=== PATIENT | female | born 1970 | race African-American/Black ===

== ENCOUNTER 2016-05-15 09:13 | Emergency (ER) | payer OTHER ==
[2016-05-15 09:26] VITALS: BP 161/93; PULSE 83; TEMP 98.5; BMI 34.3
[2016-05-15] MEDS ORDERED: ACETAMINOPHEN 500 MG TABLET (FP) PO ONE (09:51)
--- NOTE | 2016-05-15 09:52 | PDOC ---
History of Present Illness - General Chief Complaint: Injury Stated Complaint: FALL, RT ANKLE PAIN Time Seen by Provider: 05/15/16 09:51 History Source: Patient Exam Limitations: No Limitations - History of Present Illness Initial Comments: 05/15/16 10:56 05/15/16 10:56 Chief complaint: Patient fell on stairs and caught her foot Jeanne muse complaining of right ankle and foot pain History of present illness: Patient is a 45 year old female with a history of GERD and hysterectomy here today complaining of right lateral ankle pain and foot pain over fifth meta-tarsal joint. Patient has minimal swelling right lateral ankle. Patient unable to ambulate due to pain. Patient denies any numbness of right lower extremity or foot or ankle. Patient reports that pain currently as a 10 out of 10. 05/16/16 08:26 05/16/16 08:26 Occurred: reports: just prior to arrival Severity: reports: moderate Pain Location: reports: lower extremity (rt. foot/lateral ankle) Method of Injury: Yes: fall Modifying Factors: improves with: immobilization Loss of Consciousness: no loss of consciousness Associated Symptoms (Fall): denies symptoms Past History - Past Medical History Allergies/Adverse Reactions: Allergies Allergy/AdvReac Type Severity Reaction Status Date / Time No Known Drug Allergies Allergy Verified 05/15/16 09:21 Home Medications: Ambulatory Orders NK [No Known Home Medication] 05/15/16 Anemia: No Asthma: No Cancer: No Cardiac Disorders: No CVA: No COPD: No CHF: No Dementia: No Diabetes: No GI Disorders: Yes (reflux) Disorders: No HTN: No Hypercholesterolemia: No Liver Disease: No Seizures: No Thyroid Disease: No - Surgical History Abdominal Surgery: No Appendectomy: No Cardiac Surgery: No Cholecystectomy: Yes Lung Surgery: No Neurologic Surgery: No Orthopedic Surgery: No - Psycho/Social/Smoking Cessation Hx Suicidal Ideation: No Smoking History: Current every day smoker Have you smoked in the past 12 months: Yes Number of Cigarettes Smoked Daily: 10 Information on smoking cessation initiated: Yes 'Breaking Loose' booklet given: 05/15/16 Hx Alcohol Use: No Drug/Substance Use Hx: No Substance Use Type: Alcohol Hx Substance Use Treatment: No Review of Systems - Review of Systems Able to Perform ROS?: Yes Constitutional: No: Symptoms Reported HEENTM: No: Symptoms Reported Respiratory: No: Symptoms reported Cardiac (ROS): No: Symptoms Reported ABD/GI: No: Symptoms Reported Musculoskeletal: Yes: Joint Pain (rt. lateral ankle/foot ), Joint Swelling (rt. lateral ankle ) Integumentary: No: Symptoms Reported Neurological: No: Symptoms reported *Physical Exam - Vital Signs Last Vital Signs Temp Pulse Resp BP Pulse Ox 98.5 F 83 18 161/93 100 05/15/16 09:23 05/15/16 09:23 05/15/16 09:23 05/15/16 09:23 05/15/16 09:23 - Physical Exam General Appearance: Yes: Appropriately Dressed Vascular Pulses: Dorsalis-Pedis (R): 4+ Musculoskeletal: positive: Normal Inspection. negative: CVA Tenderness, CVA Tenderness (R), CVA Tenderness (L), Vertebral Tenderness Extremity: positive: Normal Capillary Refill, Normal Range of Motion, Tender ( rt. lateral ankle pain, rt. 5th metatarsal jt. proximatl aspect) Integumentary: positive: Swelling (minimal swelling rt. lateral ankle ) Procedures - Consent Consent obtained: From Patient - Splinting Splint Location: Right: Foot, Ankle Pre-Made Type: aircast Faraz Bandage: 3" Complications: No ED Treatment Course - RADIOLOGY Radiology Studies Ordered: Category Date Time Status ANKLE & FOOT-RIGHT* [RAD] Stat Radiology 05/15/16 09:35 Taken Medical Decision Making - Medical Decision Making 05/15/16 10:58 Patient is a 45 year old female with a history of GERD and hysterectomy here today complaining of right lateral ankle pain and foot pain over fifth meta- tarsal joint. Patient has minimal swelling right lateral ankle. Patient unable to ambulate due to pain. Patient denies any numbness of right lower extremity or foot or ankle. Patient reports that pain currently as a 10 out of 10. 05/15/16 11:01 Right lateral ankle pain and right lateral foot pain rule out fracture due to failure L rt. 5th toe fracture base of proximal phalanxb noted 05/16/16, pt called to notify her and to tell her to tape rt4th and 5th toes together Plan: Patient denies any chance of being and had hysterectomy will sent to x- ray for x-ray ankle and right foot fracture noted on x-ray call from radiologist 05/16/16 fx base of proximal 5th phalanx Faraz wrap 3 inch, air cast right ankle and crutches given Acetaminophen 1000 mg by mouth given ortho follow up needed 05/16/16 08:27 05/16/16 08:28 pt. called to notify of fx 5th proximal metatarsal told to jeff tape 4th and 5th toes together 05/16/16 08:31 *DC/Admit/Observation/Transfer Diagnosis at time of Disposition: Right ankle sprain Qualifiers: Encounter type: initial encounter Involved ligament of ankle: unspecified ligament Qualified Code(s): S93.401A - Sprain of unspecified ligament of right ankle, initial encounter Right foot sprain Qualifiers: Encounter type: initial encounter Qualified Code(s): S93.601A - Unspecified sprain of right foot, initial encounter Toe fracture, right Qualifiers: Encounter type: initial encounter Toe: lesser toe Phalanx: proximal Fracture alignment: nondisplaced - Discharge Dispostion Disposition: HOME Condition at time of disposition: Stable - Referrals Referrals: Karen Schuster MD [Primary Care Provider] - Adam Ascencio MD [Staff Physician] - - Patient Instructions Additional Instructions: Regular right leg as much as possible and apply ice to tender area every 2 hours for 15 minutes while awake today and tomorrow Keep Faraz wrap in place during the day and Aircast and use crutches for ambulation Patient voiced understanding of discharge instructions and all questions were answered - Post Discharge Activity Work/School Note: Back to Work
== END 2016-05-15 11:11 | disposition home or self-care (01) ==
LOC: JERFT 09:13
PROC: 2W3LX1Z Immobilization of Right Lower Extremity using Splint (ICD-10-PCS; principal; 2016-05-15)
DX: S93.401A Sprain of unspecified ligament of right ankle, initial encounter (principal); S93.601A Unspecified sprain of right foot, initial encounter; W10.8XXA Fall (on) (from) other stairs and steps, initial encounter; Y93.89 Activity, other specified; Y92.038 Other place in apartment as the place of occurrence of the external cause
CPT/HCPCS: 73610-TC-RT; 73630-TC-RT; 99281-25

== ENCOUNTER 2017-07-17 12:33 | Inpatient (IN) | payer OTHER ==
[2017-07-17 12:40] VITALS: BMI 34.3
--- NOTE | 2017-07-17 13:11 | PDOC ---
History of Present Illness - General History Source: Patient Exam Limitations: No Limitations - History of Present Illness Initial Comments: 07/17/17 14:00 47 yhear old female with pmh of crons and IBS who presented to Ed due to headache, light headedness and elevated blood pressure. She has BP number has been elevated in 170/92 on no meds. She reports chest tightness med sternal , local , non radiating. associated with sob and nausea but no vomiting. She denies any she denies any sob on exertion , no orthopnea or dyspnea. the headache is 3/10 left side, radiated to her neck, and shoulders. She denies any fever, chills, vomiting , diarrhea or constipation, denies any dysuria, hematuria or frequency. PMH:Cron , IBS PSH : Hysteroectomy, cholecystectomy 07/17/17 15:39 EKG: NSR, SC , QRS 80, QTC 448, St elevation V4 , (my reading ). will repeat EKG <Jared Fontenot - Last Filed: 07/17/17 16:11> <Elias Valiente - Last Filed: 07/17/17 16:25> - General Chief Complaint: Blood Pressure Problem Stated Complaint: ELEVATED BP Time Seen by Provider: 07/17/17 13:10 Past History - Travel Traveled outside of the country in the last 30 days: No Close contact w/someone who was outside of country & ill: No - Past Medical History Anemia: No Asthma: No Cancer: No Cardiac Disorders: No Hx Myocardial Infarction: No CVA: No COPD: No CHF: No DVT: No Dementia: No Diabetes: No GI Disorders: Yes (reflux) Disorders: No HTN: No Hypercholesterolemia: No Liver Disease: No Seizures: No Thyroid Disease: No - Surgical History Abdominal Surgery: No Appendectomy: No Cardiac Surgery: No Cholecystectomy: Yes Lung Surgery: No Neurologic Surgery: No Orthopedic Surgery: No - Suicide/Smoking/Psychosocial Hx Smoking History: Current every day smoker Have you smoked in the past 12 months: Yes Number of Cigarettes Smoked Daily: 10 Information on smoking cessation initiated: No 'Breaking Loose' booklet given: 05/15/16 Hx Alcohol Use: No Drug/Substance Use Hx: No Substance Use Type: Alcohol Hx Substance Use Treatment: No <Jared Fontenot - Last Filed: 07/17/17 16:11> <Elias Valiente - Last Filed: 07/17/17 16:25> - Past Medical History Allergies/Adverse Reactions: Allergies Allergy/AdvReac Type Severity Reaction Status Date / Time No Known Drug Allergies Allergy Verified 07/17/17 12:37 Home Medications: Ambulatory Orders NK [No Known Home Medication] 05/15/16 Review of Systems - Review of Systems Able to Perform ROS?: Yes Is the patient limited Bulgarian proficient: No Constitutional: No: Symptoms Reported, See HPI, Chills, Diaphoresis, Fever, Loss of Appetite, Malaise, Night Sweats, Weakness, Weight Stable, Unintentional Wgt. Loss, Unexplained wgt Loss, Other HEENTM: No: Symptoms Reported, See HPI, Eye Pain, Blurred Vision, Tearing, Recent change in vision, Double Vision, Cataracts, Ear Pain, Ocular Prothesis, Ear Discharge, Nose Pain, Nose Congestion, Tinnitus, Nose Bleeding, Hearing Loss , Throat Pain, Throat Swelling, Mouth Pain, Dental Problems, Difficulty Swallowing, Mouth Swelling, Other Respiratory: Yes: Shortness of Breath. No: Cough, Orthopnea, SOB with Exertion , Stridor, Wheezing, Productive cough, Hemoptysis Cardiac (ROS): Yes: Chest Pain, Lightheadedness, Chest Tightness. No: Edema, Irregular Heart Rate, Palpitations, Syncope ABD/GI: Yes: Nausea. No: Poor Appetite, Poor Fluid Intake, Rectal Bleeding, Vomiting, Indigestion, Abdominal cramping : No: Symptoms Reported, See HPI, Burning, Dysuria, Discharge, Frequency, Flank Pain, Hematuria, Incontinence, Pain, Urgency, Testicular Mass, Testicular Swelling, Lesions, Testicular Pain, Other Musculoskeletal: No: Symptoms Reported, See HPI, Back Pain, Gout, Joint Pain, Joint Swelling, Muscle Pain, Muscle Weakness, Neck Pain, Joint Stiffness, Other Integumentary: No: Symptoms Reported, See HPI, Bruising, Change in Color, Change in Hair/Nails, Dryness, Erythema, Flushing, Lesions, Lumps, Pallor, Pruritus, Rash, Sweating, Other Neurological: Yes: Headache, Tremors. No: Ataxia, Dizziness Psychiatric: No: Anxiety, Depression, Emotional Problems, Mood Swings Endocrine: No: Excessive Sweating, Flushing, Intolerance to Cold, Intolerance to Heat, Increased Hunger, Increased Urine Hematologic/Lymphatic: No: Anemia, Blood Clots, Easy Bleeding <Jared Fontenot - Last Filed: 07/17/17 16:11> *Physical Exam - Vital Signs Last Vital Signs Temp Pulse Resp BP Pulse Ox 98.1 F 75 15 175/102 100 07/17/17 12:38 07/17/17 12:38 07/17/17 12:38 07/17/17 12:38 07/17/17 12:38 07/17/17 15:28 General appearance: sleepy and fatigue in NAD Head: nc/at, dry mucus membrane. Neck: supple Chest: diminished breath sound , CTA B/L . no wheezes, no accessory muscle use. Heart : RRR, NO MRG Abdomen: obese, soft , non tender to palpation Musculoskeleteal: left shoulder tederness with LROM due to pain Neuro: no focal deficit, Legs: + 2 edema - Physical Exam General Appearance: Yes: Nourished, Obese. No: Intoxicated HEENT: positive: EOMI, WILMER, Normal Voice, TMs Normal. negative: Tonsillar Exudate, Tonsillar Erythema, Lesions, Excessive drooling Neck: negative: Carotid bruit, Decreased range of motion, Stridor, Lymphadenopathy (L) Respiratory/Chest: positive: Lungs Clear, Normal Breath Sounds. negative: Respiratory Distress, Accessory Muscle Use, Labored Respiration Cardiovascular: positive: Regular Rhythm, Regular Rate, S1, S2. negative: Edema , JVD, Murmur Vascular Pulses: Femoral (R): 2+, Femoral (L): 2+, Dorsalis-Pedis (R): 2+, Doralis-Pedis (L): 2+ Gastrointestinal/Abdominal: positive: Normal Bowel Sounds, Soft. negative: Tender, Distended, Guarding, Rebound, Tenderness Musculoskeletal: positive: Normal Inspection. negative: CVA Tenderness Extremity: positive: Normal Capillary Refill, Normal Inspection, Normal Range of Motion. 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 07/17/17 16:01 first trop is negative <0.02 will repeat after 6 hours at 20.00 07/17/17 16:12 Pt blood pressure is trending down from 166/92 to 151/ 80 . after one SL ntiro and Tylenol. - RADIOLOGY Chest X-Ray Result: No Infiltrates, Other (no acute pathology) - Medications Given in the ED: 07/17/17 15:28 nitpglycerin 0.4 SL Tylenol 650 mg once ofr pain 07/17/17 15:58 324 ASA chewable nitroglycerine 0.5 mg paste <Jared Fontenot - Last Filed: 07/17/17 16:11> - LABORATORY CBC & Chemistry Diagram: 07/17/17 14:35 07/17/17 14:35 - ADDITIONAL ORDERS Additional order review: Laboratory Results 07/17/17 07/17/17 07/17/17 14:35 14:35 14:35 PT with INR 11.70 INR 1.04 D-Dimer 176 Sodium 138 Potassium 4.2 Chloride 103 Carbon Dioxide 27 Anion Gap 8 BUN 9 Creatinine 0.7 Creat Clearance w eGFR > 60 Random Glucose 76 Calcium 8.8 Magnesium 2.2 Total Bilirubin 0.3 AST 13 L ALT 16 Alkaline Phosphatase 73 Creatine Kinase 180 Creatine Kinase Index 1.1 CK-MB (CK-2) 1.986 Troponin I < 0.02 < 0.02 B-Natriuretic Peptide 216.98 H Total Protein 7.6 Albumin 4.0 Triglycerides 169 H Cholesterol 261 H Total LDL Cholesterol 184 H HDL Cholesterol 43 Urine Color Urine Appearance Urine pH Ur Specific [place] Urine Protein Urine Glucose (UA) Urine Ketones Urine Blood Urine Nitrite Urine Bilirubin Urine Urobilinogen Ur Leukocyte Esterase 07/17/17 13:22 PT with INR INR D-Dimer Sodium Potassium Chloride Carbon Dioxide Anion Gap BUN Creatinine Creat Clearance w eGFR Random Glucose Calcium Magnesium Total Bilirubin AST ALT Alkaline Phosphatase Creatine Kinase Creatine Kinase Index CK-MB (CK-2) Troponin I B-Natriuretic Peptide Total Protein Albumin Triglycerides Cholesterol Total LDL Cholesterol HDL Cholesterol Urine Color L[place] Urine Appearance Clear Urine pH 6.0 Ur Specific [place] 1.011 Urine Protein Negative Urine Glucose (UA) Negative Urine Ketones Negative Urine Blood Negative Urine Nitrite Negative Urine Bilirubin Negative Urine Urobilinogen Negative Ur Leukocyte Esterase Negative 07/17/17 14:35 RBC 4.41 MCV 93.6 MCHC 33.7 RDW 13.6 MPV 11.3 H Neutrophils % 60.9 Lymphocytes % 28.6 Monocytes % 6.6 Eosinophils % 2.9 Basophils % 1.0 - RADIOLOGY Radiology Studies Ordered: Category Date Time Status HEAD CT WITHOUT CONTRAST [CT] Stat CT Scan 07/17/17 16:23 Ordered CHEST X-RAY PORTABLE* [RAD] Stat Radiology 07/17/17 16:10 Ordered - Medications Given in the ED: ED Medications Discontinued Medications Generic Name Dose Route Start Last Admin Trade Name Enriqueq PRN Reason Stop Dose Admin Acetaminophen 650 mg 07/17/17 14:29 07/17/17 14:54 Tylenol - PO 07/17/17 14:30 650 mg ONCE ONE Administration Aspirin 324 mg 07/17/17 15:58 07/17/17 16:07 Asa - PO 07/17/17 15:59 324 mg ONCE ONE Administration Nitroglycerin 0.4 mg 07/17/17 14:30 07/17/17 14:54 Nitrostat - SL 07/17/17 14:31 0.4 mg ONCE ONE Administration Nitroglycerin 0.5 inch 07/17/17 15:57 07/17/17 16:07 Nitro-Bid 2% Paste - TD 07/17/17 15:58 0.5 inch ONCE ONE Administration <Elias Valiente - Last Filed: 07/17/17 16:25> *DC/Admit/Observation/Transfer <Jared Fontenot - Last Filed: 07/17/17 16:11> - Discharge Dispostion Admit: Yes <Elias Valiente - Last Filed: 07/17/17 16:25> Diagnosis at time of Disposition: Acute coronary syndrome Headache Qualifiers: Headache type: unspecified Headache chronicity pattern: acute headache Intractability: not intractable Qualified Code(s): R51 - Headache - Discharge Dispostion Condition at time of disposition: Fair
[2017-07-17 14:06] LABS: URINE APPEARANCE CLEAR; URINE BILIRUBIN NEGATIVE (NEGATIVE); URINE BLOOD NEGATIVE (NEGATIVE); URINE COLOR LTYELLOW; URINE GLUCOSE (UA) NEGATIVE (NEGATIVE); URINE KETONE NEGATIVE (NEGATIVE); URINE LEUK ESTERASE NEGATIVE (NEGATIVE); URINE NITRITE NEGATIVE (NEGATIVE); URINE PROTEIN NEGATIVE (NEGATIVE); URINE UROBILINOGEN NEGATIVE mg/dL (0.2-1.0)
--- NOTE | 2017-07-17 14:10 | PDOC ---
Attending Attestation - Resident Resident Name: Jared Fontenot - ED Attending Attestation I have performed the following: I have examined & evaluated the patient, The case was reviewed & discussed with the resident, I agree w/resident's findings & plan, Exceptions are as noted - Physicial Exam PE: 07/17/17 16:07 CONSTITUTIONAL: Well-appearing; well-nourished; in no apparent distress HEAD: Normocephalic; atraumatic EYES: PERRL; EOM intact ENMT: External appears normal; normal oropharynx NECK: Supple; non-tender; no cervical lymphadenopathy CARD: Normal S1, S2; no murmurs, rubs, or gallops RESP: Normal chest excursion with respiration; breath sounds clear and equal bilaterally; no wheezes, rhonchi, or rales ABD: Soft, non-distended; non-tender; no palpable organomegaly, no palpable hernias EXT: Normal ROM in all four extremities; non-tender to palpation; distal pulses intact SKIN: Warm, dry, no rash NEURO: No focal neurological deficiencies. - Medical Decision Making 07/17/17 16:07 Patient is a 47-year-old female with history of hypertension (untreated, smoking , and family history of stroke at an early age, presents to the ER with substernal chest discomfort, nonpleuritic, pressure-like, which is increasing in frequency and duration over the past 2 weeks. Patient's symptoms lasted through the early evaluation in the ER and were relieved by sublingual nitroglycerin. EKG shows ST segment elevations in V1 and J point elevations in V2 and V3 without reciprocal changes. First set of cardiac enzymes is within normal limit. Patient's triglycerides and cholesterol also noted to be elevated. Chest x-ray reveals no evidence of widened mediastinum. Patient's blood pressure improved after administration of nitroglycerin. Patient's heart score is 2. Patient will be placed in observation on telemetry for serial cardiac enzymes and cardiac consultation. We'll administer aspirin and transdermal nitroglycerin. <Elias Valiente - Last Filed: 07/17/17 16:07> - HPI HPI: 07/17/17 16:10 The patient is a 47 year old female, with a significant past medical history of Crohn's, IBS, hysterectomy, and cholecystectomy, who presents to the emergency department with headache, lightheadedness, and elevated blood pressure. She arrives with additional complaints of chest tightness that is localized in the mid sternal area, and has associated SOB. Denies nausea, vomit, diarrhea or constipation. <Julio C Ruano - Last Filed: 07/17/17 16:10>
[2017-07-17] MEDS ORDERED: ACETAMINOPHEN 325 MG TABLET (FP) PO ONE (14:29)
[2017-07-17] MEDS ORDERED: NITROGLYCERIN SUBLINGUAL 1/150 0.4 MG TAB SL ONE (14:30)
[2017-07-17] MEDS ORDERED: NITROGLYCERIN SUBLINGUAL 1/150 0.4 MG TAB ONE (14:50)
[2017-07-17] MEDS ORDERED: ACETAMINOPHEN 325 MG TABLET (FP) ONE (14:50)
[2017-07-17 14:54] LABS: EOS % 2.9 % (0-4.5); HEMATOCRIT 41.2 % (32.4-45.2); HEMOGLOBIN 13.9 GM/dL (10.7-15.3); LYMPH % 28.6 % (8-40); MCH 31.5 pg (25.7-33.7); MCHC 33.7 g/dl (32.0-36.0); MEAN CELL VOLUME 93.6 fl (80-96); MEAN PLT VOLUME 11.3 fl (7.5-11.1); MONO % 6.6 % (3.8-10.2); NEUT % 60.9 % (42.8-82.8); PLATELET COUNT 233 K/MM3 (134-434); RBC 4.41 M/mm3 (3.60-5.2); RDW 13.6 % (11.6-15.6); WHITE BLOOD COUNT 9.6 K/mm3 (4.0-10.0)
[2017-07-17 15:08] LABS: INR 1.04 (0.82-1.09); PROTHROMBIN TIME (PATIENT) 11.7 SEC (9.98-11.88)
[2017-07-17 15:19] LABS: ANION GAP 8 (8-16); BILIRUBIN,TOTAL 0.3 mg/dL (0.2-1.0); BLOOD UREA NITROGEN 9 mg/dL (7-18); CALCIUM 8.8 mg/dL (8.5-10.1); CHLORIDE 103 mmol/L (98-107); CO2 27 mmol/L (21-32); CREATININE 0.7 mg/dL (0.55-1.02); GLUCOSE,RANDOM 76 mg/dL (74-106); POTASSIUM 4.2 mmol/L (3.5-5.1); SGOT/AST 13 U/L (15-37); SGPT/ALT 16 U/L (12-78); SODIUM 138 mmol/L (136-145); TOT PROT 7.6 g/dl (6.4-8.2)
[2017-07-17 15:20] LABS: CHOLESTEROL 261 mg/dL (50-200); MAGNESIUM 2.2 mg/dL (1.8-2.4); TRIGLYCERIDES 169 mg/dL (35-160)
[2017-07-17 15:21] LABS: ALK PHOS 73 U/L (45-117)
[2017-07-17 15:25] LABS: HDL CHOLESTEROL 43 mg/dL (40-60); N-TERMINAL BNP 216.98 pg/ml (5-125)
[2017-07-17] MEDS ORDERED: NITROGLYCERIN 2% OINTMENT - 1GM PACKET TD ONE ×2 (15:57→16:08)
[2017-07-17] MEDS ORDERED: ASPIRIN 81 MG CHEWABLE TABLETS PO ONE (15:58)
[2017-07-17] MEDS ORDERED: ASPIRIN 325 MG TABLET ONE (16:08)
--- NOTE | 2017-07-17 17:44 | HP ---
Admitting History and Physical - Primary Care Physician PCP: DR lisandra Hodges([facility]) - Admission Chief Complaint: The patient is a 47 year old female, with a significant past medical history of Crohn's, IBS, hysterectomy, and cholecystectomy, who presents to the emergency department with headache, lightheadedness, and elevated blood pressure. She arrives with additional complaints of chest tightness that is localized in the mid sternal area, and has associated SOB. 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 (F/H Cerebral Aneurysam) Cardiovascular: Yes: Other (Chest tightness) Gastrointestinal: Yes: Other (H/O Crohns/IBS) ...LMP: 10/05/11 - Smoking History Smoking history: Current every day smoker Have you smoked in the past 12 months: Yes Aproximately how many cigarettes per day: 10 - Alcohol/Substance Use Hx Alcohol Use: No Home Medications - Allergies Allergies/Adverse Reactions: Allergies Allergy/AdvReac Type Severity Reaction Status Date / Time No Known Drug Allergies Allergy Verified 07/17/17 12:37 - Home Medications Home Medications: Ambulatory Orders NK [No Known Home Medication] 05/15/16 Review of Systems - Review of Systems Constitutional: reports: Weakness Eyes: reports: No Symptoms HENT: reports: No Symptoms Cardiovascular: reports: Chest Pain Gastrointestinal: reports: No Symptoms Hematology/Lymphatic: reports: No Symptoms Physical Examination Vital Signs: Vital Signs Temperature 97.8 F 07/17/17 16:06 Pulse Rate 61 07/17/17 16:06 Respiratory Rate 18 07/17/17 16:06 Blood Pressure 144/85 07/17/17 16:06 O2 Sat by Pulse Oximetry (%) 100 07/17/17 16:06 Labs: CBC, BMP 07/17/17 14:35 07/17/17 14:35 Problem List - Problems (1) Chest pain Code(s): R07.9 - CHEST PAIN, UNSPECIFIED Qualifiers: Chest pain type: precordial pain Qualified Code(s): R07.2 - Precordial pain (2) Headache Code(s): R51 - HEADACHE Qualifiers: Headache type: unspecified Headache chronicity pattern: acute headache Intractability: not intractable Qualified Code(s): R51 - Headache (3) Hyperlipidemia Code(s): E78.5 - HYPERLIPIDEMIA, UNSPECIFIED Qualifiers: Hyperlipidemia type: pure hypercholesterolemia Qualified Code(s): E78.00 - Pure hypercholesterolemia, unspecified; E78.0 - Pure hypercholesterolemia (4) Hypertensive urgency Code(s): I16.0 - HYPERTENSIVE URGENCY (5) Tobacco abuse Code(s): Z72.0 - TOBACCO USE Assessment/Plan Problem List - Problems (1) Chest pain Code(s): R07.9 - CHEST PAIN, UNSPECIFIED Qualifiers: Chest pain type: precordial pain Qualified Code(s): R07.2 - Precordial pain (2) Hypertensive urgency Code(s): I16.0 - HYPERTENSIVE URGENCY (3) Hyperlipidemia Code(s): E78.5 - HYPERLIPIDEMIA, UNSPECIFIED Qualifiers: Hyperlipidemia type: pure hypercholesterolemia Qualified Code(s): E78.00 - Pure hypercholesterolemia, unspecified; E78.0 - Pure hypercholesterolemia (4) Tobacco abuse Code(s): Z72.0 - TOBACCO USE Assessment/Plan 1. Chest pain syndrome in context of hypertensive urgency resolved 2. Hyperlipidemia 3. Tobacco abuse P:1. Ruled out for [place], check TSH 2. Start Diovan 80 qd and uptitrate as needed 3. Start Crestor 20 qd 4. Tobacco cessation
[2017-07-17] MEDS ORDERED: ZOLPIDEM TARTRATE 5 MG TABLET PO PRN (17:54)
[2017-07-18 05:41] LABS: BASO % 0.8 % (0-2.0); EOS % 2.9 % (0-4.5); HEMATOCRIT 38.6 % (32.4-45.2); HEMOGLOBIN 13.3 GM/dL (10.7-15.3); LYMPH % 25.6 % (8-40); MCH 32.3 pg (25.7-33.7); MCHC 34.6 g/dl (32.0-36.0); MEAN CELL VOLUME 93.4 fl (80-96); MEAN PLT VOLUME 10.9 fl (7.5-11.1); MONO % 8.2 % (3.8-10.2); NEUT % 62.5 % (42.8-82.8); PLATELET COUNT 216 K/MM3 (134-434); RBC 4.13 M/mm3 (3.60-5.2); RDW 13.4 % (11.6-15.6); WHITE BLOOD COUNT 8.6 K/mm3 (4.0-10.0)
[2017-07-18 06:43] LABS: ALBUMIN 3.5 g/dl (3.4-5.0); ALK PHOS 72 U/L (45-117); ANION GAP 10 (8-16); BILIRUBIN,TOTAL 0.4 mg/dL (0.2-1.0); BLOOD UREA NITROGEN 13 mg/dL (7-18); CALCIUM 8.8 mg/dL (8.5-10.1); CHLORIDE 104 mmol/L (98-107); CO2 25 mmol/L (21-32); CREATININE 0.6 mg/dL (0.55-1.02); GLUCOSE,RANDOM 87 mg/dL (74-106); SGOT/AST 16 U/L (15-37); SGPT/ALT 13 U/L (12-78); SODIUM 139 mmol/L (136-145); TOT PROT 7.1 g/dl (6.4-8.2)
[2017-07-18 11:18] VITALS: TEMP 98.5
--- NOTE | 2017-07-18 11:58 | CON.CARD ---
Consult Consult Specialty:: Cardiology Referred by:: Dr. Oviedo Reason for Consultation:: Chest pain - History of Present Illness Chief Complaint: Chest pain History of Present Illness: The patient is a 47 year old female, with a significant past medical history of Crohn's, IBS, hysterectomy, and cholecystectomy, who presented to the emergency department with headache, lightheadedness, elevated blood pressure, retrosternal chest tightness and associated SOB all resolved with BP control. She denies true syncope, palpitations, orthopnea, PND or LE edema. 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) Cardio/Vascular: Yes: Other (Chest tightness) Gastrointestinal: Yes: Other (H/O Crohns/IBS) ...LMP: 10/05/11 - Alcohol/Substance Use Hx Alcohol Use: Yes (WINE SOCIALLY) - Smoking History Smoking history: Current every day smoker Have you smoked in the past 12 months: Yes Aproximately how many cigarettes per day: 10 Home Medications - Allergies Allergies/Adverse Reactions: Allergies Allergy/AdvReac Type Severity Reaction Status Date / Time No Known Drug Allergies Allergy Verified 07/17/17 12:37 - Home Medications Home Medications: Ambulatory Orders NK [No Known Home Medication] 05/15/16 Review of Systems - Review of Systems Cardiovascular: reports: Chest Pain, Shortness of Breath Neurological: reports: Headache Vital Signs: Vital Signs Temperature 98.5 F 07/18/17 10:00 Pulse Rate 74 07/18/17 10:00 Respiratory Rate 18 07/18/17 10:00 Blood Pressure 149/82 07/18/17 10:00 O2 Sat by Pulse Oximetry (%) 100 07/18/17 09:00 Constitutional: Yes: No Distress Neck: Yes: Supple Respiratory: Yes: Regular, CTA Bilaterally Gastrointestinal: Yes: Normal Bowel Sounds, Soft, Abdomen, Obese Cardiovascular: Yes: Regular Rate and Rhythm JVD: No Carotid Bruit: No Heart Sounds: Yes: S1, S2 Edema: No - Other Data Labs, Other Data: CBC, BMP 07/18/17 05:02 07/18/17 05:02 INR, PTT INR 1.04 (0.82-1.09) 07/17/17 14:35 Troponin, BNP 07/17/17 07/17/17 03 14:35 14:35 18:40 Troponin I < 0.02 < 0.02 < 0.02 B-Natriuretic Peptide 216.98 H Troponin, BNP 07/17/17 07/17/17 07/17/17 14:35 14:35 18:40 Troponin I < 0.02 < 0.02 < 0.02 B-Natriuretic Peptide 216.98 H NSR @ [address]-T changes Imaging - Results Chest X-ray: Report Reviewed (NAD) Cat Scan: Report Reviewed (HCT: Negative) Problem List - Problems (1) Chest pain Code(s): R07.9 - CHEST PAIN, UNSPECIFIED Qualifiers: Chest pain type: precordial pain Qualified Code(s): R07.2 - Precordial pain (2) Hypertensive urgency Code(s): I16.0 - HYPERTENSIVE URGENCY (3) Hyperlipidemia Code(s): E78.5 - HYPERLIPIDEMIA, UNSPECIFIED Qualifiers: Hyperlipidemia type: pure hypercholesterolemia Qualified Code(s): E78.00 - Pure hypercholesterolemia, unspecified; E78.0 - Pure hypercholesterolemia (4) Tobacco abuse Code(s): Z72.0 - TOBACCO USE Assessment/Plan 1. Chest pain syndrome in context of hypertensive urgency resolved 2. Hyperlipidemia 3. Tobacco abuse P:1. Ruled out for [place], check TSH 2. Start Diovan 80 qd and uptitrate as needed 3. Start Crestor 20 qd 4. Tobacco cessation 5. Further CV evaluation including echo and ETT may be performed as outpatient 6. Thank you for consultative opportunity
[2017-07-18] MEDS ORDERED: VALSARTAN 80 MG TABLET (UD) PO SCH (12:30)
--- NOTE | 2017-07-18 15:15 | PN ---
Progress Note, Physician - Current Medication List Current Medications: Active Medications Rosuvastatin Calcium (Crestor -) 20 mg PO HS FRANKY Valsartan (Diovan -) 80 mg PO DAILY [facility] Last Admin: 07/18/17 13:10 Dose: 80 mg Zolpidem Tartrate (Ambien -) 5 mg PO HS PRN PRN Reason: INSOMNIA - Objective Vital Signs: Vital Signs Temperature 98.5 F 07/18/17 10:00 Pulse Rate 74 07/18/17 10:00 Respiratory Rate 18 07/18/17 10:00 Blood Pressure 149/82 07/18/17 10:00 O2 Sat by Pulse Oximetry (%) 100 07/18/17 09:00 Labs: CBC, BMP 07/18/17 05:02 07/18/17 05:02 INR, PTT INR 1.04 (0.82-1.09) 07/17/17 14:35
[2017-07-18 15:46] VITALS: BP 130/69; PULSE 70
--- NOTE | 2017-07-18 16:33 | EKG ---
Test Reason : Blood Pressure : / mmHG Vent. Rate : 069 BPM Atrial Rate : 069 BPM P-R Int : 148 ms QRS Dur : 074 ms QT Int : 406 ms P-R-T Axes : 056 052 054 degrees QTc Int : 435 ms NORMAL SINUS RHYTHM POSSIBLE LEFT ATRIAL ENLARGEMENT BORDERLINE ECG WHEN COMPARED WITH ECG OF 17-JUL-2017 16:22, NO SIGNIFICANT CHANGE WAS FOUND Confirmed by ANICETO MTZ MD ([id number]) on 07/18/2017 4:33:18 PM Referred By: Confirmed By:ANICETO MTZ MD
--- NOTE | 2017-07-18 16:41 | EKG ---
Test Reason : Blood Pressure : / mmHG Vent. Rate : 053 BPM Atrial Rate : 053 BPM P-R Int : 162 ms QRS Dur : 080 ms QT Int : 470 ms P-R-T Axes : 038 022 061 degrees QTc Int : 441 ms SINUS BRADYCARDIA OTHERWISE NORMAL ECG WHEN COMPARED WITH ECG OF 17-JUL-2017 13:41, NO SIGNIFICANT CHANGE WAS FOUND Confirmed by ANICETO MTZ MD ([id number]) on 07/18/2017 4:41:29 PM Referred By: Confirmed By:ANICETO MTZ MD
--- NOTE | 2017-07-18 16:45 | CON.NEURO ---
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) Cardio/Vascular: Yes: Other (Chest tightness) Gastrointestinal: Yes: Other (H/O Crohns/IBS) ...LMP: 10/05/11 - Alcohol/Substance Use Hx Alcohol Use: Yes (WINE SOCIALLY) - Smoking History Smoking history: Current every day smoker Have you smoked in the past 12 months: Yes Aproximately how many cigarettes per day: 10 Home Medications - Allergies Allergies/Adverse Reactions: Allergies Allergy/AdvReac Type Severity Reaction Status Date / Time No Known Drug Allergies Allergy Verified 07/17/17 12:37 - Home Medications Home Medications: Ambulatory Orders NK [No Known Home Medication] 05/15/16 Physical Exam-Neuro Vital Signs: Vital Signs Temperature 98.5 F 07/18/17 10:00 Pulse Rate 70 07/18/17 15:45 Respiratory Rate 18 07/18/17 15:45 Blood Pressure 130/69 07/18/17 15:45 O2 Sat by Pulse Oximetry (%) 100 07/18/17 09:00 Labs: CBC, BMP 07/18/17 05:02 07/18/17 05:02 INR, PTT INR 1.04 (0.82-1.09) 07/17/17 14:35 Assessment/Plan cc headache , family history of Brain Aneurysm HPI 47 year old female history of HTN, HLD came with hypertensive crisis and had dizziness and headhace . Her symptoms has resolved after controlling her BP. She has no focal neurological symptoms. Patient has family history of brain aneurysm . Her mother of brain aneurysm. Only one first degree member. She had mri of brain done and it was normal. She recently had ct head done showed enlargement of pituitary. Patient usually gets headhace frequently, twice or thrice a week. She almost everyday takes pain medication for headache. Her job is quite stressful and she is smoker. Past Medciation as above Medciation reviewed Family history of Aneursym RADHA VALIENTE reviewed inc christopher NKDA Neurological Examination Alert oriented x 3, no neck stiffness, afebril speech is normal, follow command eomi, pupils reactive, vf normal by conffrontation, moving all ext sensation is normal ct head is unremarkable, showed ? pituitary enlargement Assessment- 1. chronic tension headache with analgesic overuse , consider nortripytline outpatient. life style modifications were discussed advice not to use nsaid or tylenol more than twice a week 2. hypertension crisis controlled 3. family history of aneurysm- would obtain previous mri , and if mra was done. Typically screening is advised if two first degree of family member has brain aneurysm , advise smoking cessation follow up outpatient in clinic Thheather you so much Amaury Hamm MD
--- NOTE | 2017-07-18 19:42 | DS ---
Physical Examination Vital Signs: Vital Signs Temperature 98.5 F 07/18/17 10:00 Pulse Rate 70 07/18/17 15:45 Respiratory Rate 18 07/18/17 15:45 Blood Pressure 130/69 07/18/17 15:45 O2 Sat by Pulse Oximetry (%) 100 07/18/17 09:00 Constitutional: Yes: Well Nourished, No Distress Eyes: Yes: Conjunctiva Clear HENT: Yes: Atraumatic, Normocephalic Neck: Yes: Supple, Trachea Midline Cardiovascular: Yes: Regular Rate and Rhythm, S1, S2 Respiratory: Yes: Regular, CTA Bilaterally Gastrointestinal: Yes: Normal Bowel Sounds, Soft Labs: CBC, BMP 07/18/17 05:02 07/18/17 05:02 Discharge Summary Reason For Visit: ACUTE CORONARY SYNDROME Current Active Problems Acute coronary syndrome (Acute) Chest pain (Acute) Headache (Acute) Hyperlipidemia (Acute) Hypertensive urgency (Acute) Tobacco abuse (Acute) Procedures: Principal: Pt seen by cardiology and Neurology today. Pt says cant stay for MRI and Further cardiac work up. Pt will do as OP futher work uP Condition: Improved - Instructions Diet, Activity, Other Instructions: FOLLOW UP W Disposition: HOME - Home Medications Comprehensive Discharge Medication List: Ambulatory Orders NK [No Known Home Medication] 05/15/16 Diovan 80 Po daily Crestor 20 Po daily Low fat diet OP Fu with Nuclear stress test ECHO with Doppler TSH MRI as OP discussed next week to FU in PMD Dr Oviedo Office next week Saturday to titrate meds and Further work up and Monitoring
[2017-07-18] MEDS ORDERED: ROSUVASTATIN CA 20 MG TABLET (FP) PO SCH (22:00)
--- NOTE | 2017-07-25 14:34 | EKG ---
Test Reason : Blood Pressure : / mmHG Vent. Rate : 060 BPM Atrial Rate : 060 BPM P-R Int : 148 ms QRS Dur : 080 ms QT Int : 448 ms P-R-T Axes : 010 016 048 degrees QTc Int : 448 ms NORMAL SINUS RHYTHM NORMAL ECG WHEN COMPARED WITH ECG OF 01-DEC-2011 10:08, NO SIGNIFICANT CHANGE WAS FOUND Confirmed by ANICETO MTZ MD ([id number]) on 07/25/2017 2:34:16 PM Referred By: Confirmed By:ANICETO MTZ MD
== END 2017-07-18 20:10 | disposition home or self-care (01) | DRG 198 ==
LOC: JER 12:33 → JERBED 16:26 → J2W 22:02
PROVIDERS: ADMIT Internal Medicine; ATTEND Internal Medicine
DX: R07.89 Other chest pain (principal); E78.5 Hyperlipidemia, unspecified; I16.0 Hypertensive urgency; F17.210 Nicotine dependence, cigarettes, uncomplicated; I24.9 Acute ischemic heart disease, unspecified; R51 Headache
CPT/HCPCS: 36415; 70450-TC; 71045-TC-FY; 80053; 80061; 81003; 82550; 82553; 83721; 83735; 83880; 84484; 85025; 85379; 85610; 93005; 93010; 99284-25

== ENCOUNTER 2018-04-01 11:08 | Emergency (ER) | payer OTHER ==
[2018-04-01 11:18] VITALS: BMI 34.3
--- NOTE | 2018-04-01 11:49 | PDOC ---
History of Present Illness - General Chief Complaint: Constipation Stated Complaint: ABD PAIN Time Seen by Provider: 04/01/18 11:31 - History of Present Illness Initial Comments: 04/01/18 11:50 Ms. Winchester is a 47 yo female w/ pmh of chrons (untreated), IBS, HTN, HLD, thyroid tumor who presents for evaluation of abdominal pain. Patient reports she has additionally had 1 week of constipation. She took a laxative last (03/27) and had a bowel movement the following day but has otherwise been unable to go. Patient localizes pain to LUQ of abdomen. The patient denies chest pain, shortness of breath, headache and dizziness. Denies fever, chills, nausea, vomit, and diarrhea. Denies dysuria, frequency, urgency and hematuria. Past History - Past Medical History Allergies/Adverse Reactions: Allergies Allergy/AdvReac Type Severity Reaction Status Date / Time No Known Drug Allergies Allergy Verified 04/01/18 11:12 Home Medications: Ambulatory Orders Docusate Sodium [Colace] 100 mg PO DAILY #7 capsule 04/01/18 Pramipexole Di-HCl [Mirapex] 0.25 mg PO DAILY 04/01/18 Rizatriptan Benzoate [Rizatriptan] 10 mg PO BID 04/01/18 Rosuvastatin [Crestor -] 20 mg PO DAILY 04/01/18 Sennosides [Senna] 8.6 mg PO DAILY #7 tablet 04/01/18 Topiramate [Topamax] 25 mg PO BID 04/01/18 Valsartan [Diovan] 80 mg PO DAILY 04/01/18 Anemia: No Asthma: No Cancer: No Cardiac Disorders: No CVA: No COPD: No CHF: No DVT: No Dementia: No Diabetes: No GI Disorders: Yes (GERD, IBS & CHRONS) Disorders: No HTN: No Hypercholesterolemia: No Liver Disease: No Seizures: No Thyroid Disease: No - Surgical History Abdominal Surgery: No Appendectomy: No Cardiac Surgery: No Cholecystectomy: Yes Lung Surgery: No Neurologic Surgery: No Orthopedic Surgery: No - Immunization History Immunization Up to Date: Yes - Suicide/Smoking/Psychosocial Hx Smoking History: Never smoked Have you smoked in the past 12 months: Yes Number of Cigarettes Smoked Daily: 10 Information on smoking cessation initiated: No 'Breaking Loose' booklet given: 07/17/17 Hx Alcohol Use: No Drug/Substance Use Hx: No Substance Use Type: None Hx Substance Use Treatment: No Review of Systems - Review of Systems Comments:: 04/01/18 11:52 GENERAL/CONSTITUTIONAL: No fever or chills. No weakness. HEAD, EYES, EARS, NOSE AND THROAT: No change in vision. No ear pain or discharge. No sore throat. CARDIOVASCULAR: No chest pain or shortness of breath RESPIRATORY: No cough, wheezing, or hemoptysis. GASTROINTESTINAL: +Constipation and LUQ abdominal pain as described. GENITOURINARY: No dysuria, frequency, or change in urination. MUSCULOSKELETAL: No joint or muscle swelling or pain. No neck or back pain. SKIN: No rash NEUROLOGIC: No headache, vertigo, loss of consciousness, or change in strength/ sensation. ENDOCRINE: No increased thirst. No abnormal weight change HEMATOLOGIC/LYMPHATIC: No anemia, easy bleeding, or history of blood clots. ALLERGIC/IMMUNOLOGIC: No hives or skin allergy. *Physical Exam - Vital Signs Last Vital Signs Temp Pulse Resp BP Pulse Ox 98.2 F 90 16 163/82 100 04/01/18 11:12 04/01/18 11:12 04/01/18 11:12 04/01/18 11:12 04/01/18 11:12 - Physical Exam Comments: 04/01/18 11:52 GENERAL: Awake, alert, and fully oriented, in no acute distress HEAD: No signs of trauma, normocephalic, atraumatic EYES: PERRLA, EOMI, sclera anicteric, conjunctiva clear ENT: Auricles normal inspection, hearing grossly normal, nares patent, oropharynx clear without exudates. Moist mucosa NECK: Normal ROM, supple, no lymphadenopathy, JVD, or masses LUNGS: No distress, speaks full sentences, clear to auscultation bilaterally HEART: Regular rate and rhythm, normal S1 and S2, no murmurs, rubs or gallops, peripheral pulses normal and equal bilaterally. ABDOMEN: +LUQ TTP. Soft, normoactive bowel sounds. No guarding, no rebound. No masses EXTREMITIES: Normal inspection, Normal range of motion, no edema. No clubbing or cyanosis. NEUROLOGICAL: Cranial nerves II through XII grossly intact. Normal speech, normal gait, no focal sensorimotor deficits SKIN: Warm, Dry, normal turgor, no rashes or lesions noted. Moderate Sedation - Procedure Monitoring Vital Signs: Procedure Monitoring Vital Signs Temperature 98.2 F 04/01/18 11:12 Pulse Rate 90 04/01/18 11:12 Respiratory Rate 16 04/01/18 11:12 Blood Pressure 163/82 04/01/18 11:12 O2 Sat by Pulse Oximetry (%) 100 04/01/18 11:12 ED Treatment Course - LABORATORY CBC & Chemistry Diagram: 04/01/18 14:10 04/01/18 14:10 Medical Decision Making - Medical Decision Making 04/01/18 18:39 Ms. Winchester is a 47 yo female w/ pmh as described who presents for evaluation of constipation and LUQ pain concerning for constipation vs. colitis vs. crohns. Patient currently pending CT abd/pelvis read and electing to leave AMA. Dangers of this discussed with patient including exacerbation of symptoms, infection, or . Patient still elects to AMA and will sign out. 04/01/18 19:04 Patient elected to stay and wait for read. 04/01/18 19:20 CT negative for acute findings. Discharging patient w/ constipation discharge instructions and senna/colace with mag citrate. No concern for acute process at this time. *DC/Admit/Observation/Transfer Diagnosis at time of Disposition: Constipation Qualifiers: Constipation type: unspecified constipation type Qualified Code(s): K59.00 - Constipation, unspecified Abdominal pain Qualifiers: Abdominal location: unspecified location Qualified Code(s): R10.9 - Unspecified abdominal pain - Discharge Dispostion Disposition: HOME - Prescriptions Prescriptions: Docusate Sodium [Colace] 100 mg PO DAILY #7 capsule Sennosides [Senna] 8.6 mg PO DAILY #7 tablet - Referrals Referrals: Karen Schuster MD [Primary Care Provider] - - Patient Instructions Printed Discharge Instructions: DI for Constipation Additional Instructions: You were evaluated today in the ER for your abdominal pain and constipation. Please follow attached constipation instructions as written. Follow-up with primary care provider for further evaluation as soon as possible. Return to ER IMMEDIATELY if any increase in pain, fever, chills, or other concerning symptoms. - Post Discharge Activity
--- NOTE | 2018-04-01 12:45 | PDOC ---
Attending Attestation - HPI HPI: 04/01/18 14:51 The patient is a 47 year old female with a past medical history of Crohn's /UC ( untreated), IBS, HTN, HLD,prolactinoma here today for evaluation of abdominal pain. The patient notes her pain has been going on for one week and is localized to the left upper quadrant and constipation. she took a laxative and had one bowel movement, +flatus this morning. The patient notes a subjective fever. She reports starting a new medication for her thyroid tumor recently. No travel or sick contacts or suspicious food intake. Patient denies headache, lightheadedness. Denies chills. Denies chest pain, shortness of breath. Denies vomiting, diarrhea. Denies lower extremity edema. Denies urinary symptoms. Denies neurologic symptoms. Allergies: NKA PCP: Karen Schuster - Physicial Exam PE: 04/01/18 14:52 NAD, well appearing, MMM, nl conjunctiva, anicteric; neck supple. lungs clear, RRR, abdomen soft. Left upper quadrant tenderness. No rebound or guarding. No CVAT. [place] x4, no focal neuro deficits. No peripheral edema. normal color for ethnicity, WWP. <AndrewRoge - Last Filed: 04/01/18 14:50> - Resident Resident Name: Timothy Mcgill - ED Attending Attestation I have performed the following: I have examined & evaluated the patient, The case was reviewed & discussed with the resident, I agree w/resident's findings & plan - Medical Decision Making 04/01/18 15:15 47 YOF with LUQ AP, constipation. no f/c, only subjective sx. DDx abdominal pain: Renal colic, biliary colic, metabolic/electrolyte derangements. GERD, PUD, esophageal spasm, pancreatitis, hepatitis, constipation , colitis, gastroenteritis, cholecystitis, UTI, pyelonephritis, ileus, hernia, appendicitis, diverticulitis Vital signs reviewed, wnl. laboratory results and imaging reviewed, basic labs and lytes wnl, notable for normal LFTs and lipase. UA_negative for infection, neg preg test. ED course: IVF, tylenol, GI cocktail/pepcid, supportive measures. with clinical improvement. CT a/p to r/o crohn's colitis flareup, intra abdominal pathology/infection/ inflammation. CT a/p negative for pathology, no bowel pathology. physio pelvic fluid, s/p cholecystectomy, otherwise unremarkable. bowel regimen, constipation care, high fiber diet and supportive care, fluids. mag citrate to take home, bowel regimen rx GI follow up as outpatient DC in stable condition. return precautions discussed 04/01/18 19:35 <Marianela Chong - Last Filed: 04/01/18 19:36>
[2018-04-01] MEDS ORDERED: ACETAMINOPHEN 1000 MG/100 ML VIAL (NON FORMULARY) IVPB ONE (13:10)
[2018-04-01] MEDS ORDERED: FAMOTIDINE 20 MG/50 ML IVPB 20 MG/50 ML MG IVPB ONE ×2 (13:10→14:00)
[2018-04-01] MEDS ORDERED: SODIUM CHLORIDE 1,000 ML IV STA (13:10)
[2018-04-01] MEDS ORDERED: MAG HYDROX/AL HYDROX/SIMETH 30 ML UNIT-DOSE CUP PO ONE (13:11)
[2018-04-01 13:15] LABS: URINE APPEARANCE CLEAR; URINE BILIRUBIN NEGATIVE (<2.0 mg/dL); URINE COLOR STRAW; URINE GLUCOSE (UA) NEGATIVE (NEGATIVE); URINE KETONE NEGATIVE (NEGATIVE); URINE LEUK ESTERASE NEGATIVE (NEGATIVE); URINE NITRITE NEGATIVE (NEGATIVE); URINE PROTEIN NEGATIVE (NEGATIVE); URINE UROBILINOGEN NEGATIVE mg/dL (0.2-1.0)
[2018-04-01] MEDS ORDERED: ACETAMINOPHEN INJECTION 100 ML IVPB ONE (14:00)
[2018-04-01] MEDS ORDERED: MAG HYDROX/AL HYDROX/SIMETH 30 ML UNIT-DOSE CUP ONE (14:00)
[2018-04-01 14:31] LABS: BASO % 0.7 % (0-2.0); EOS % 2.4 % (0-4.5); HEMATOCRIT 42.6 % (32.4-45.2); LYMPH % 27.8 % (8-40); MCHC 32.8 g/dl (32.0-36.0); MEAN CELL VOLUME 94.7 fl (80-96); MEAN PLT VOLUME 10.9 fl (7.5-11.1); MONO % 7.5 % (3.8-10.2); NEUT % 61.6 % (42.8-82.8); PLATELET COUNT 206 K/MM3 (134-434); RDW 13.8 % (11.6-15.6); WHITE BLOOD COUNT 9.4 K/mm3 (4.0-10.0)
[2018-04-01 14:55] LABS: ALBUMIN 3.8 g/dl (3.4-5.0); ALK PHOS 70 U/L (45-117); ANION GAP 4 MMOL/L (8-16); BILIRUBIN,TOTAL 0.6 mg/dL (0.2-1); BLOOD UREA NITROGEN 8 mg/dL (7-18); CALCIUM 9.1 mg/dL (8.5-10.1); CHLORIDE 105 mmol/L (98-107); CO2 29 mmol/L (21-32); CREATININE 0.6 mg/dL (0.55-1.3); GLUCOSE,RANDOM 86 mg/dL (74-106); LIPASE 87 U/L (73-393); POTASSIUM 4.2 mmol/L (3.5-5.1); SGOT/AST 16 U/L (15-37); SGPT/ALT 21 U/L (13-61); SODIUM 137 mmol/L (136-145); TOT PROT 7.4 g/dl (6.4-8.2)
[2018-04-01 15:06] VITALS: TEMP 98.7
[2018-04-01 18:28] VITALS: BP 157/99; PULSE 78
[2018-04-01] MEDS ORDERED: MAGNESIUM CITRATE 300 ML BOTTLE PO ONE (19:19)
[2018-04-01] MEDS ORDERED: MAGNESIUM CITRATE 300 ML BOTTLE ONE (19:30)
== END 2018-04-01 19:37 | disposition home or self-care (01) ==
LOC: JER 11:08
PROC: 3E033GC Introduction of Other Therapeutic Substance into Peripheral Vein, Percutaneous Approach (ICD-10-PCS; principal; 2018-04-01)
PROC: 3E033NZ Introduction of Analgesics, Hypnotics, Sedatives into Peripheral Vein, Percutaneous Approach (ICD-10-PCS; 2018-04-01)
DX: K59.00 Constipation, unspecified (principal); I10 Essential (primary) hypertension; E78.5 Hyperlipidemia, unspecified; Z87.19 Personal history of other diseases of the digestive system
CPT/HCPCS: 36415; 74177-TC; 80053; 81003; 83690; 84703; 85025; 87086; 99283-25; J0131; J7030; Q9967

== ENCOUNTER 2023-12-16 20:28 | Emergency (ER) | payer OTHER ==
[2023-12-16 20:34] VITALS: RESP 17; TEMP 98.5; BMI 28.3
[2023-12-16] MEDS ORDERED: ONDANSETRON 4 MG/2 ML VIAL ONE (21:30)
[2023-12-16] MEDS ORDERED: ACETAMINOPHEN INJECTION 100 ML IVPB ONE (21:30)
[2023-12-16] MEDS: ACETAMINOPHEN 1000 MG/100 ML BAG IVPB ONE (21:36)
[2023-12-16] MEDS: ONDANSETRON 4 MG/2 ML VIAL IVPUSH ONE (21:36)
[2023-12-16] MEDS: SODIUM CHLORIDE 0.9% 500 ML INFUS.BAG IV ONE ×2 (21:36→22:42)
[2023-12-16 21:40] LABS: BASO % 0.5 % (0-2.0); EOS % 9.9 % (0-4.5); HEMOGLOBIN 16.2 GM/dL (10.7-15.3); LYMPH % 31.8 % (8-40); MCH 31.6 pg (25.7-33.7); MCHC 33.6 g/dl (32.0-36.0); MEAN CELL VOLUME 93.9 fl (80-96); MEAN PLT VOLUME 10.6 fl (7.5-11.1); MONO % 10.3 % (3.8-10.2); NEUT % 47.5 % (42.8-82.8); PLATELET COUNT 271 10^3/uL (134-434); RBC 5.12 M/mm3 (3.60-5.2); RDW 13.4 % (11.6-15.6)
[2023-12-16 22:07] LABS: POTASSIUM 3.6 mmol/L (3.5-5.1)
[2023-12-16 22:09] LABS: ALBUMIN 3.7 g/dl (3.4-5.0); CALCIUM 9.8 mg/dL (8.5-10.1)
[2023-12-16 22:10] LABS: BLOOD UREA NITROGEN 27.8 mg/dL (7-18)
[2023-12-16 22:14] LABS: BILIRUBIN,TOTAL 0.4 mg/dL (0.2-1); TOT PROT 7.3 g/dl (6.4-8.2)
[2023-12-16] MEDS ORDERED: MAG HYDROX/AL HYDROX/SIMETH 30 ML UNIT-DOSE CUP ONE (22:23)
[2023-12-16] MEDS ORDERED: FAMOTIDINE 20 MG TABLET ONE (22:23)
[2023-12-16] MEDS: MAG HYDROX/AL HYDROX/SIMETH 30 ML UNIT-DOSE CUP PO ONE (22:39)
[2023-12-16] MEDS: FAMOTIDINE 20 MG TABLET PO ONE (22:42)
[2023-12-16 23:12] VITALS: BP 147/82; PULSE 82
== END 2023-12-16 23:59 | disposition home or self-care (01) ==
LOC: JER 20:28
PROC: 3E033NZ Introduction of Analgesics, Hypnotics, Sedatives into Peripheral Vein, Percutaneous Approach (ICD-10-PCS; principal; 2023-12-16)
PROC: 3E033GC Introduction of Other Therapeutic Substance into Peripheral Vein, Percutaneous Approach (ICD-10-PCS; 2023-12-16)
DX: K52.9 Noninfective gastroenteritis and colitis, unspecified (principal); R11.10 Vomiting, unspecified; R14.0 Abdominal distension (gaseous)
CPT/HCPCS: 36415; 80053; 83690; 85025; 99284-25; J0131